=== PATIENT | female | born 1990 | race Caucasian/White ===

== ENCOUNTER 2018-01-02 20:54 | Emergency (ER) | payer OTHER ==
[~2018-01-02] VITALS: Ht 162.6 cm; Wt 77.1 kg
[~2018-01-02 20:54] MED LIST: NORCO 5-325 TA1 EACH PO; ZOFRAN4 MG PO
[2018-01-02 22:16] VITALS: BP 137/80
== END 2018-01-02 22:20 ==
LOC: M.ERS 20:54
DX: R45.851 Suicidal ideations (principal); F17.210 Nicotine dependence, cigarettes, uncomplicated; X78.1XXA Intentional self-harm by knife, initial encounter